=== PATIENT | female | born 1995 | race African-American/Black ===

== ENCOUNTER 2018-11-10 09:07 | Emergency (ER) | payer MEDICAID ==
[~2018-11-10] VITALS: Ht 157.5 cm; Wt 73.1 kg
[2018-11-10 09:10] VITALS: BP 116/63
--- NOTE | 2018-11-10 09:15 | NUR ---
Patient ambulated to bed 5. RN evaluating patient at bedside. Addendum: 11/10/18 at 1831 by TRISH Patient to be transferred to [facility]. Is being transferred due to 5150 HOLD SI. Receiving facility has accepting physician and available space. ER physician has signed transfer form. Patient or responsible constitution party has agreed to transfer and signed form. Patient belongings inventoried and will be sent with patient. Copy of nursing notes, lab reports, EKG, Physicians Orders and X-rays to be sent with patient. Report called to ANITA at receiving facility.
--- NOTE | 2018-11-10 09:18 | NUR ---
PT REPORTS TRYING TO COMMIT SUICIDE 1 HOUR AGO BY TAKING WHOLE BOTTLE OF 200MG IBUPROFEN, UNK NUMBER OF TABS, AND HANDFUL OF UNKNOWN SLEEPING PILLS AND UNKNOWN AMOUNT. PT REPORTS BEING SUICIDAL X 1 YEAR. PT TRIED TO COMMIT SUICIDE 1X BEFORE WITH IBUPROFEN AND NYQUIL. AOX4. NOT LETHARGIC. NO N/V. TACHYCARDIC. NAD AT THIS TIME. MEDHX:DEPRESSION RX:DENIES
--- NOTE | 2018-11-10 09:34 | NUR ---
Dr. Drew evaluating patient at bedside.
--- NOTE | 2018-11-10 09:35 | NUR ---
PER GEOVANNI FROM [facility]ISON [facility]: CONSIDER ADMINISTERING CHARCOAL. SUPPORTIVE CARE. OBTAIN CMP NOW AND REPEAT IN 4-6H. WATCH FOR BRUSHER MACHINE CHANGES AND RESP DEPRESSION. OBTAIN 12 LEAD EKG NOW AND REPEAT IN 2-4H OR SOONER IF INDICATED. WATCH FOR ABN QRS AND QTC CHANGES. WATCH FOR SEIZURES. OBSERVE FOR [address] CONROY NOTIFIED OF THE ABOVE RECOMMENDATIONS.
--- NOTE | 2018-11-10 09:43 | NUR ---
Telepsychiatry consultation ordered as requested by Dr. Drew.
--- NOTE | 2018-11-10 09:51 | NUR ---
LAB DRAWING BLOOD AT BEDSIDE.
--- NOTE | 2018-11-10 10:06 | NUR ---
Dr. Rodriguez evaluating patient via telepsychiatry.
[2018-11-10 10:07] LABS: BASOPHILS # (AUTO) 0.1 K/uL (0.00-0.22); BASOPHILS % (AUTO) 0.9 % (0.0-2.0); EOSINOPHILS # (AUTO) 0.2 K/uL (0-0.4); EOSINOPHILS % (AUTO) 2.9 % (0.0-4.0); HEMATOCRIT 37.9 % (36-48); HEMOGLOBIN 12.1 g/dL (12.0-16.0); LYMPHOCYTES # (AUTO) 0.8 K/uL (2.5-16.5); LYMPHOCYTES % (AUTO) 13.4 % (20.5-51.1); MEAN CORPUSCULAR HEMOGLOBIN 25 pg (27-31); MEAN CORPUSCULAR HGB CONC 32 g/dL (33-37); MEAN CORPUSCULAR VOLUME 79.4 fL (80-94); MONOCYTES # (AUTO) 0.4 K/uL (0.8-1.0); MONOCYTES % (AUTO) 7.3 % (1.7-9.3); NEUTROPHILS # (AUTO) 4.4 K/uL (1.8-7.7); NEUTROPHILS % (AUTO) 75.5 % (42.2-75.2); PLATELET COUNT (AUTO) 211 K/uL (140-450); RED BLOOD CELL COUNT(AUTO) 4.78 MIL/uL (4.20-5.40); RED CELL DISTRIBUTION WIDTH 14.8 % (11.6-13.7); WHITE BLOOD COUNT (AUTO) 5.9 K/uL (4.5-11.0)
[2018-11-10 10:17] LABS: ANION GAP 18.7 (8-16); CARBON DIOXIDE 21.8 mmol/L (21-32); CHLORIDE 104 mmol/L (98-107); CREATININE 1.1 mg/dL (0.6-1.3); GFR ARICAN-AMERICAN 81 mL/min (>90); GLUCOSE 100 mg/dL (74-106); POTASSIUM 3.5 mmol/L (3.5-5.1); SODIUM SERUM 141 mmol/L (136-145); UREA NITROGEN, BLOOD 12 mg/dL (7-18)
--- NOTE | 2018-11-10 10:21 | NUR ---
SPOKE WITH DR. JOYA REGARDING PT'S CONDITION.
[2018-11-10 10:23] LABS: ALBUMIN 4.3 g/dL (3.4-5.0); ASPARTATE AMINOTRANSFERASE 16 U/L (15-37); TOTAL BILIRUBIN 0.3 mg/dL (0.0-1.0)
[2018-11-10 10:23] LABS: APPEARANCE,URINE CLEAR (CLEAR); BILIRUBIN,URINE NEGATIVE (NEGATIVE); BLOOD, URINE NEGATIVE (NEGATIVE); COLOR,URINE YELLOW (YELLOW); LEUKOCYTE ESTERASE ,URINE TRACE (NEGATIVE); NITRITE, URINE NEGATIVE (NEGATIVE); PH,URINE 5.5 (5.0-9.0); UGLUCOSE NEGATIVE (NEGATIVE)
[2018-11-10 10:24] LABS: ACETAMINOPHEN < 0.5 ug/ml (10-30); SALICYLATE < 2.8 mg/dL (2.8-20.0)
[2018-11-10 11:05] LABS: RBC,URINE 0-5 /HPF (0-5)
--- NOTE | 2018-11-10 11:26 | NUR ---
[place] [facility] at bedside.
--- NOTE | 2018-11-10 12:26 | NUR ---
PATIENT VOMITTED 200 ML BROWNISH LIQUID. IS AWARE. PT STATES SHE FEELS BETTER NOW AFTER VOMITING.
--- NOTE | 2018-11-10 13:08 | NUR ---
SPOKE WITH ARLETH FROM [facility], UPDATED ON PT STATUS, RECOMMNENDS REPEAT EKG AND TO MONITOR HR.
--- NOTE | 2018-11-10 13:32 | NUR ---
NOTIFIED THAT PT IS THROWING UP, STATES MORE NAUSEA THAN EARLIER.
[2018-11-10] MEDS ORDERED: ONDANSETRON 4 MG TAB PO ONE (13:35)
[2018-11-10] MEDS ORDERED: CEPHALEXIN 500 MG CAP PO ONE (13:35)
--- NOTE | 2018-11-10 13:39 | NUR ---
PT IN BATHROOM. UNABLE TO GIVE MED AT THIS TIME.
[2018-11-10] MEDS ORDERED: NACL 0.9% 1,000 ML IV ONE (14:20)
[2018-11-10] MEDS ORDERED: ONDANSETRON 4 MG/2 ML VIAL IVP ONE (14:20)
--- NOTE | 2018-11-10 14:39 | NUR ---
[facility] aware of patient. Referral faxed to [facility] for potential placement.
[2018-11-10 15:55] LABS: ACETAMINOPHEN < 0.5 ug/ml (10-30); SALICYLATE < 2.8 mg/dL (2.8-20.0)
--- NOTE | 2018-11-10 16:40 | NUR ---
SPOKE WITH ANITA FROM [facility] REGARDING PATIENT'S CONDITION.
--- NOTE | 2018-11-10 17:04 | NUR ---
Called following facilities: [facility] no beds [facility] s/w Zainab, [place] fax for review
--- NOTE | 2018-11-10 17:10 | NUR ---
Called [facility] s/w Gerber, no beds at this time [facility] s/w Miriam no beds for the rest of the night [facility] s/w Sabina no beds but packet fax for wait list
--- NOTE | 2018-11-10 18:10 | NUR ---
PT RESTING IN BED, RESPIRATIONS EVEN AND UNLABORED. EMT AT BEDSIDE FOR SUICIDAL PRECAUTIONS.
--- NOTE | 2018-11-10 18:25 | NUR ---
REPORT GIVEN TO [facility] STAFF.
[2018-11-10 18:30] VITALS: BP 109/55
--- NOTE | 2018-11-10 18:30 | NUR ---
[facility] LEFT WITH PATIENT IN STABLE CONDITION.
== END 2018-11-10 18:31 ==
LOC: MED 09:07
DX: R45.851 Suicidal ideations (principal); T39.312A Poisoning by propionic acid derivatives, intentional self-harm, initial encounter; T45.0X2A Poisoning by antiallergic and antiemetic drugs, intentional self-harm, initial encounter; F32.9 Major depressive disorder, single episode, unspecified; Y92.89 Other specified places as the place of occurrence of the external cause
CPT/HCPCS: 36415; 80053; 81001; 81025; 85025; 87086; 93005; 96374; 99284; G0480; G0482; J2405; J7030; Q0162; 99285